=== PATIENT | male | born 1990 | race Caucasian/White ===

== ENCOUNTER 2018-07-23 22:10 | Emergency (ER) | payer BC ==
[2018-07-23] MEDS ORDERED: SODIUM CHLORIDE 0.9% 500 ML 500 ML IV STA (23:38)
[2018-07-23] MEDS ORDERED: MAG HYDROX/AL HYDROX/SIMETH 30 ML, HYOSCYAMINE ELIXIR 10 ML, CIMETIDINE HCL 300 MG, LID... PO STA ×4 (23:39)
[2018-07-23 23:53] LABS: Basophils % (A) 0 %; Eosinophils # (A) 0.1 k/uL (0-0.7); Eosinophils % (A) 1 %; HCT 43.9 % (39.0-53.0); HGB 14.6 gm/dL (13.0-17.5); Lymphocytes # (A) 1.5 k/uL (1.0-4.8); Lymphocytes % (A) 22 %; MCH 30.9 pg (25.0-35.0); MCHC 33.2 g/dL (31.0-37.0); Monocytes # (A) 0.5 k/uL (0-1.0); Monocytes % (A) 8 %; Neutrophils # (A) 4.5 k/uL (1.3-7.7); Neutrophils % (A) 66 %; Platelet Count 182 k/uL (150-450); RBC 4.72 m/uL (4.30-5.90); RDW 11.9 % (11.5-15.5); WBC 6.8 k/uL (3.8-10.6)
[2018-07-24 00:03] LABS: Partial Thromboplastin Time 25.8 sec (22.0-30.0); Prothrombin Time 10.9 sec (9.0-12.0)
[2018-07-24 00:05] LABS: ALT 36 U/L (21-72); AST 21 U/L (17-59); Albumin 4.3 g/dL (3.5-5.0); Alkaline Phosphatase 58 U/L (38-126); Anion Gap 8 mmol/L; Blood Urea Nitrogen 19 mg/dL (9-20); Calcium 9.6 mg/dL (8.4-10.2); Carbon Dioxide 28 mmol/L (22-30); Chloride 104 mmol/L (98-107); Glucose 100 mg/dL (74-99); Potassium 3.9 mmol/L (3.5-5.1); Sodium 140 mmol/L (137-145); Total Bilirubin 0.3 mg/dL (0.2-1.3); Total Protein 7.6 g/dL (6.3-8.2)
--- NOTE | 2018-07-24 01:10 | XR ---
EXAM: XR Chest, 2 Views CLINICAL HISTORY: Reason: Chest Pain TECHNIQUE: Frontal and lateral views of the chest. COMPARISON: None available FINDINGS: Lungs: Lungs are clear of focal infiltrates or consolidations. Probable very small left upper lobe calcified pulmonary granulomas. Pleural space: No evidence of pleural effusion or pneumothorax. Heart: Heart size is within normal limits. Mediastinum: Mediastinal structures are unremarkable. Bones/joints: Imaged bony thorax is unremarkable. IMPRESSION: No evidence of acute cardiopulmonary disease. Probable very small left upper lobe calcified pulmonary granulomas.
[2018-07-24 03:22] VITALS: RESP 18
--- NOTE | 2018-07-24 03:42 | ED ---
Chest Pain HPI - General Chief Complaint: Chest Pain Stated Complaint: Chest pain Time Seen by Provider: 07/23/18 23:01 Source: patient Mode of arrival: ambulatory Limitations: no limitations - History of Present Illness Initial Comments: 28-year-old male patient presented to the emergency department today for evaluation of left-sided chest pain and generalized chest pressure. Patient states symptoms have been present intermittently over the last week however worsened today. Patient states he did feel short of breath with this and did have pain radiating to the left jaw. Patient states that the pain persisted so he presented here for further evaluation. Patient states he did start a new job is unsure if this may be related to anxiety. States he has had some indigestion. Denies taking any medication for his symptoms. Denies any nausea or sweats with this. Denies any cough, nasal congestion, fever, or chills. Patient denies any personal or family history of coronary artery disease. Patient denies any recent travel, leg pain, or calf swelling. Patient denies any recent rash, abdominal pain, diarrhea, constipation, back pain, numbness, tingling, dizziness, weakness, hematuria, dysuria, urinary urgency, urinary frequency, headache, visual changes, or any other complaints. - Related Data Home Medications Medication Instructions Recorded Confirmed No Known Home Medications 07/23/18 07/23/18 Allergies Allergy/AdvReac Type Severity Reaction Status Date / Time hepatitis A virus vaccine Allergy Rash/Hives Verified 07/23/18 22:20 Review of Systems ROS Statement: Those systems with pertinent positive or pertinent negative responses have been documented in the HPI. ROS Other: All systems not noted in ROS Statement are negative. EKG Findings - EKG Comments: EKG Findings:: EKG interpreted by me at 2356 shows normal sinus rhythm with a ventricular rate of 83, PA interval 170, QRS duration 92, QT 376, QTc 441. No evidence of ST elevation or depression. Past Medical History Past Medical History: No Reported History History of Any Multi-Drug Resistant Organisms: None Reported Past Surgical History: Adenoidectomy Additional Past Surgical History / Comment(s): nasal Past Psychological History: No Psychological Hx Reported Smoking Status: Never smoker Past Alcohol Use History: Occasional Past Drug Use History: None Reported General Exam Limitations: no limitations General appearance: alert, in no apparent distress, other (This is a well- developed, well-nourished adult male patient in no acute distress. Vital signs upon presentation are temperature 98.3F, pulse 87, respirations 18, blood pressure 154/87, pulse ox 99% on room air.) Eye exam: Present: normal appearance, PERRL, EOMI. Absent: scleral icterus, conjunctival injection, periorbital swelling ENT exam: Present: normal exam, normal oropharynx, mucous membranes moist Respiratory exam: Present: normal lung sounds bilaterally. Absent: respiratory distress, wheezes, rales, rhonchi, stridor Cardiovascular Exam: Present: regular rate, normal rhythm, normal heart sounds. Absent: systolic murmur, diastolic murmur, rubs, gallop, clicks GI/Abdominal exam: Present: soft, normal bowel sounds. Absent: distended, tenderness, guarding, rebound, rigid Neurological exam: Present: alert, oriented X3, CN II-XII intact Psychiatric exam: Present: normal affect, normal mood Skin exam: Present: warm, dry, intact, normal color. Absent: rash Course Vital Signs 07/23/18 07/23/18 07/24/18 22:16 23:59 03:21 Temperature 98.3 F 98.2 F Pulse Rate 87 88 64 Respiratory 18 16 18 Rate Blood Pressure 154/87 150/86 131/75 O2 Sat by Pulse 99 99 99 Oximetry 07/24/18 04:10 Temperature 98.9 F Pulse Rate 63 Respiratory 18 Rate Blood Pressure 120/76 O2 Sat by Pulse 98 Oximetry Chest Pain [facility]: Two-view x-ray of the chest is obtained. Report was reviewed in its entirety. Impression by Dr. Watts shows no evidence of acute cardiopulmonary disease. Probably small left upper lobe calcified pulmonary granulomas. MDM: 28-year-old male patient presented to the emergency department today for evaluation of left-sided chest pain and chest pressure radiating to his left jaw. Patient did report indigestion with this. Physical examination is relatively unremarkable. Did have some mild midepigastric tenderness. Labs reviewed and are unremarkable. We did repeat troponin both sets were negative. EKG showed normal sinus rhythm. Chest x-ray showed no acute cardiopulmonary process. Did discuss with patient the possibility of gastritis as a cause for his symptoms. He is instructed to begin taking Pepcid daily. He is instructed to follow-up with his primary care physician however for referral to cardiology for possible outpatient stress testing and echocardiogram. Return parameters discussed in detail. He verbalizes understanding and agrees with this plan. Disposition Clinical Impression: Chest pain Disposition: HOME SELF-CARE Condition: Good Instructions (If sedation given, give patient instructions): Chest Pain (ED) Additional Instructions: Follow-up with your primary care physician for further evaluation and possible referral to cardiology. Return to the emergency department immediately for any new, worsening, or concerning symptoms. Is patient prescribed a controlled substance at d/c from ED?: No Referrals: Dixon Tierney III, MD [Primary Care Provider] - 1-2 days Time of Disposition: 04:07
[2018-07-24 04:13] VITALS: BP 120/76; PULSE 63; TEMP 98.9
== END 2018-07-24 04:14 | disposition home or self-care (01) ==
LOC: EC 22:10
DX: R07.89 Other chest pain (principal); R10.816 Epigastric abdominal tenderness; R68.84 Jaw pain; R06.02 Shortness of breath; Z88.7 Allergy status to serum and vaccine
CPT/HCPCS: 36415; 71046; 80053; 83735; 84484; 85025; 85610; 85730; 93005; 96360; 96361; 99285

== ENCOUNTER → 2019-12-14 | Outpatient (CLI) | payer MEDICAID ==
[2019-12-14 11:15] LABS: Basophils % (A) 1 %; Eosinophils # (A) 0.1 k/uL (0-0.7); Eosinophils % (A) 1 %; HCT 44.6 % (39.0-53.0); HGB 14.7 gm/dL (13.0-17.5); Lymphocytes # (A) 1.3 k/uL (1.0-4.8); Lymphocytes % (A) 22 %; MCH 31.2 pg (25.0-35.0); MCHC 32.9 g/dL (31.0-37.0); MCV 94.8 fL (80.0-100.0); Monocytes # (A) 0.4 k/uL (0-1.0); Monocytes % (A) 6 %; Neutrophils # (A) 3.9 k/uL (1.3-7.7); Neutrophils % (A) 68 %; Platelet Count 211 k/uL (150-450); RDW 12.1 % (11.5-15.5); WBC 5.7 k/uL (3.8-10.6)
[2019-12-14 16:59] LABS: African American GFR (CKD) 138.9 (60.0-200.0); Albumin 4.6 g/dL (3.80-4.90); Albumin/Globulin Ratio 1.64 (1.60-3.17); BUN/Creat Ratio 16.25 Ratio (12.00-20.00); Calcium 9.8 mg/dL (8.7-10.3); Chol/HDL Ratio 4.73; Globulin 2.8 g/dL (1.6-3.3); LDL Cholesterol,Calculated 161.6 mg/dL (0.0-131.0); Non-African American GFR(CKD) 119.9 (60.0-200.0); Potassium 4.2 mmol/L (3.5-5.5); Total Bilirubin 0.6 mg/dL (0.3-1.2); Total Protein 7.4 g/dL (6.2-8.2); VLDL Calculation 17.4 mg/dL (5.00-40.00)
== END | disposition home or self-care (01) ==
LOC: LABWHC1 10:21
PROVIDERS: ATTEND Family Medicine
DX: Z00.01 Encounter for general adult medical examination with abnormal findings (principal); E66.09 Other obesity due to excess calories; E78.2 Mixed hyperlipidemia
CPT/HCPCS: 36415; 80053; 80061; 84439; 84443; 85025

== ENCOUNTER → 2021-04-08 | Outpatient (CLI) | payer MEDICAID, OTHER | END | disposition home or self-care (01) | LOC: LABWHC1 10:44 | PROVIDERS: ATTEND Emergency Medicine | DX: Z03.818 Encounter for observation for suspected exposure to other biological agents ruled out (principal) | CPT/HCPCS: 87635 ==

== ENCOUNTER → 2021-04-15 | Outpatient (CLI) | payer MEDICAID, OTHER | END | disposition home or self-care (01) | LOC: LABWHC1 07:07 | PROVIDERS: ATTEND Emergency Medicine | DX: Z20.822 Contact with and (suspected) exposure to COVID-19 (principal) | CPT/HCPCS: 87635 ==

== ENCOUNTER → 2023-05-07 | Outpatient (CLI) | payer MEDICAID ==
[2023-05-07 15:52] LABS: Basophils # (A) 0.02 X 10*3/uL (0.00-0.10); Basophils % (A) 0.4 %; Eosinophils # (A) 0.08 X 10*3/uL (0.04-0.35); Eosinophils % (A) 1.5 %; HCT 45.8 % (39.6-50.0); HGB 15.1 g/dL (13.0-17.0); Lymphocytes % (A) 20.2 %; MCH 30.8 pg (27.0-32.0); MCV 93.3 FL (80.0-97.0); Mean Platelet Volume 10.9 FL (9.5-12.2); Monocytes # (A) 0.58 X 10*3/uL (0.20-1.00); Monocytes % (A) 10.6 %; NRBC Per 100 WBC 0 X 10*3/uL (0.00-0.01); Neutrophils # (A) 3.66 X 10*3/uL (1.80-7.70); Neutrophils % (A) 67.1 %; Platelet Count 204 X 10*3/uL (140-440); RBC 4.91 X 10*6/uL (4.40-5.60); RDW 11.9 % (11.5-14.5); WBC 5.45 X 10*3/uL (4.50-10.00)
[2023-05-07 16:39] LABS: ALT 36 U/L (10-49); AST 21 U/L (14-35); Albumin 4.4 g/dL (3.8-4.9); Albumin/Globulin Ratio 1.33 Ratio (1.60-3.17); Alkaline Phosphatase 55 U/L (41-126); BUN/Creat Ratio 17.25 Ratio (12.00-20.00); Blood Urea Nitrogen 13.8 mg/dL (9.0-27.0); Calcium 9.9 mg/dL (8.7-10.3); Carbon Dioxide 24.8 mmol/L (21.6-31.8); Chloride 103 mmol/L (96-109); Chol/HDL Ratio 4.67 Ratio; Globulin 3.3 g/dL (1.6-3.3); Glucose 81 mg/dL (70-110); LDL Cholesterol,Calculated 147.7 mg/dL (0.0-131.0); Potassium 4.6 mmol/L (3.5-5.5); Sodium 140 mmol/L (135-145); Total Bilirubin 0.4 mg/dL (0.3-1.2); Total Protein 7.7 g/dL (6.2-8.2)
== END | disposition home or self-care (01) ==
LOC: LABWHC1 08:10
PROVIDERS: ATTEND Family Medicine
DX: Z00.00 Encounter for general adult medical examination without abnormal findings (principal); E66.9 Obesity, unspecified; R42 Dizziness and giddiness; Z68.34 Body mass index [BMI] 34.0-34.9, adult
CPT/HCPCS: 36415; 80053; 80061; 82306; 82607; 82746; 83036; 83735; 84443; 85025; 86803

== ENCOUNTER → 2023-05-13 | Outpatient (CLI) | payer MEDICAID | END | disposition home or self-care (01) | LOC: LABWHC1 10:16 | PROVIDERS: ATTEND Family Medicine | DX: Z53.9 Procedure and treatment not carried out, unspecified reason (principal) ==

== ENCOUNTER → 2023-05-20 | Outpatient (CLI) | payer MEDICAID | END | disposition home or self-care (01) | LOC: LABWHC1 13:23 | PROVIDERS: ATTEND Nurse Practitioner Family | DX: Z11.59 Encounter for screening for other viral diseases (principal) | CPT/HCPCS: 87522 ==

== ENCOUNTER → 2023-05-25 | Outpatient (CLI) | payer MEDICAID | END | disposition home or self-care (01) | LOC: LABWHC1 14:09 | PROVIDERS: ATTEND Nurse Practitioner Family | DX: Z11.59 Encounter for screening for other viral diseases (principal) | CPT/HCPCS: 36415; 86803 ==

== ENCOUNTER → 2023-11-03 | Outpatient (CLI) | payer MEDICAID ==
[2023-11-03 15:34] LABS: C Reactive Protein, High Sens 0.768 mg/L (0.000-3.000); Chol/HDL Ratio 4.17 Ratio
[2023-11-04 09:21] LABS: Lipoprotein A <5 mg/dL (0-30)
== END | disposition home or self-care (01) ==
LOC: LABWHC1 07:48
PROVIDERS: ATTEND Family Medicine
DX: E78.5 Hyperlipidemia, unspecified (principal)
CPT/HCPCS: 36415; 80061; 82172; 83695; 86141; 86803